=== PATIENT | male | born 1980 | race Caucasian/White ===

== ENCOUNTER 2017-03-03 22:28 | Emergency (ER) | payer OTHER, BC ==
--- NOTE | 2017-03-03 22:47 | EDM.PDOC ---
ED HPI GENERAL MEDICAL PROBLEM - General Chief Complaint: Lower Extremity Injury/Pain Stated Complaint: Fall with left ankle pain Time Seen by Provider: 03/03/17 22:30 Source of Information: Reports: Patient, RN, RN Notes Reviewed History Limitations: Reports: No Limitations - History of Present Illness INITIAL COMMENTS - FREE TEXT/NARRATIVE: Patient presents to the ED at [facility] after he sustained a left ankle injury during work hours. Patient states he was walking on a sidewalk, missed stepped on the cement and uneven grass, causing an inversion injury of the left ankle. Patient denies any previous injury or trauma. No previous left foot surgeries. Patient denies any numbness, tingling, or paresthesia of any extremity. Patient is able to bare weight, but it is painful to walk. Patient complains of swelling and pain around the left lateral malleolus. Onset: Today Onset Date: 03/03/17 Onset Time: 21:30 Duration: Getting Worse Location: Reports: Lower Extremity, Left Quality: Reports: Throbbing Severity: Moderate Improves with: Reports: Rest Worsens with: Reports: Movement Context: Reports: Trauma. Denies: Activity, Exercise, Lifting, Sick Contact Associated Symptoms: Reports: No Other Symptoms - Related Data Allergies Allergy/AdvReac Type Severity Reaction Status Date / Time Sulfa (Sulfonamide Allergy Cannot Verified 03/03/17 22:41 Antibiotics) Remember Home Meds: Home Meds . [No Known Home Meds] 03/03/17 [History] Review of Systems - Review of Systems Review Of Systems: See Below Constitutional: Denies: Chills, Fever, Weakness Respiratory: Denies: Shortness of Breath, Cough Cardiovascular: Denies: Chest Pain, Palpitations Musculoskeletal: Reports: Foot Pain, Joint Pain, Joint Swelling Skin: Reports: No Symptoms Neurological: Reports: No Symptoms. Denies: Numbness, Paresthesia, Tingling ED EXAM, GENERAL - Physical Exam Exam: See Below General Appearance: Alert, No Apparent Distress Head: Atraumatic, Normocephalic Respiratory/Chest: No Respiratory Distress, Lungs Clear, Normal Breath Sounds Cardiovascular: Regular Rate, Rhythm Extremities: Joint Swelling, Limited Range of Motion (no joint laxity; no crepitus; significant swelling around the left lateral malleolus; no bruising; able to bare weight) Neurological: Alert, Oriented Skin Exam: Warm, Dry, Intact, Normal Color, No Rash Course - Vital Signs Last Recorded V/S: Last Vital Signs Temp 37.1 C 03/03/17 23:20 Pulse 82 03/03/17 23:20 Resp 14 03/03/17 23:20 BP 118/89 03/03/17 23:20 Pulse Ox 97 03/03/17 23:20 - Orders/Labs/Meds Orders: Active Orders 24 hr Category Date Time Status Ankle Min 3V Lt [CR] Stat Exams 03/03/17 22:49 Ordered DME for Discharge [COMM] Routine Oth 03/03/17 23:24 Ordered Departure - Departure Time of Disposition: 23:17 Disposition: Home, Self-Care 01 Condition: good Clinical Impression: Encounter related to worker's compensation claim Left ankle sprain Qualifiers: Encounter type: initial encounter Involved ligament of ankle: unspecified ligament Qualified Code(s): S93.402A - Sprain of unspecified ligament of left ankle, initial encounter Fall Qualifiers: Encounter type: initial encounter Qualified Code(s): W19.XXXA - Unspecified fall, initial encounter - Discharge Information Instructions: Ankle Sprain Referrals: Melissa Paris PA-C [Primary Care Provider] - Forms: ED Department Discharge Additional Instructions: 1. Stay well hydrated and rest 2. Rest, elevate, and ice several times a day 3. May alternate Tylenol/Advil as needed 4. Use VANESSA wrap at all times, especially when walking 5. See your Primary was symptoms warrant - Problem List Review Problem List Initiated/Reviewed/Updated: Yes - My Orders Last 24 Hours: My Active Orders 03/03/17 22:49 Ankle Min 3V Lt [CR] Stat 03/03/17 23:24 DME for Discharge [COMM] Routine - Assessment/Plan Last 24 Hours: My Active Orders 03/03/17 22:49 Ankle Min 3V Lt [CR] Stat 03/03/17 23:24 DME for Discharge [COMM] Routine
[2017-03-03 23:21] VITALS: BP 118/89
== END 2017-03-03 23:36 | disposition home or self-care (01) ==
LOC: SUPCPDRO 22:28 → VM.ED 22:28
DX: S93.402A Sprain of unspecified ligament of left ankle, initial encounter (principal); Z88.2 Allergy status to sulfonamides; W18.31XA Fall on same level due to stepping on an object, initial encounter; Y92.69 Other specified industrial and construction area as the place of occurrence of the external cause; Y99.0 Civilian activity done for income or pay
CPT/HCPCS: 73610-LT; 99283